=== PATIENT | male | born 1950 | race Caucasian/White ===

== ENCOUNTER 2021-09-11 01:22 | Day surgery (SDC) | payer MEDICARE, OTHER, SELFPAY ==
[2021-09-02 08:15] VITALS: BMI 30.9
--- NOTE | 2021-09-02 08:43 | PC.NURSE ---
Report to the Outpatient Waiting Room, entrance under the green pavilion located off [facility], at time _1000_ on date _09/11/21_. OR Time: _1200_. - You and your visitor will be asked a series of questions to screen for COVID 19 for your protection. - Only one visitor is allowed at this time. - The patient visitor is requested to leave or wait in car when not with patient. - A mask is required within the hospital. Patients may have clear liquids (water, carbonated beverages, clear teas, apple juice) until 3 hours prior to surgery (0900 AM) with a maximum of 20 ounces. - No food from midnight until time of surgery Take the following medications with a SIP of water the morning of surgery: _CARVEDILOL_ Medications to discontinue _PT STATES LAST DOSE OF PLAVIX 08/27/21, LAST DOSE OF ASPIRIN AND FISH OIL 08/31/21_ Please no make-up, nail yi, hairspray, perfume, deodorant, or body powder the day of surgery. No jewelry (including any body piercings) or valuables the day of surgery, leave them at home. Please take a shower or bath the night before, or the morning of, surgery with an antibacterial soap. Wear comfortable, loose fitting clothing. - Jewelry must be removed prior to entering the operating room. Rings and piercings that are not removed may be cut off. - The hospital will not accept responsibility for valuables. - Please leave all valuables, including medications, at home the day of surgery. If you are going home after surgery, a licensed delivery driver/supervisor must drive you home. - NO public transportation without another adult. - We recommend that an adult stay with you for 24 hours following discharge. - We also recommend that you do not drive, make important decision, drink alcoholic beverages, or take any drugs that were not prescribed by your health care provider for at least 24 hours after your discharge time. Follow any additional instructions given to you from your surgeon. If you or anyone in your household have experienced Covid symptoms in the past week, please notify your surgeon or the nurse liaison at the phone number below for possible testing. Telephone instructions given to ____PT and asked if any additional questions and then verbalized understanding. Patient advised to call surgeon office or pre surgery nurse liaison [phone] if any additional questions.
[2021-09-11] VITALS (17 sets, daily range): BP systolic 120–168; BP diastolic 56–87; PULSE 60–70; RESP 12–20; TEMP 35.9–36.5; O2SAT 90–100
--- NOTE | ~2021-09-11 | XR_ITS ---
EXAMINATION: XR fluoroscopy no charge DATE: 09/11/2021 14:31 INDICATION: L5-S1 posterior lumbar interbody TECHNIQUE: 3 lateral fluoroscopic images of the lumbosacral junction were obtained during procedure p erformed by Dr. Robertson. Radiologist was not present for the imaging or procedure. The amount of flu oroscopy time used during this procedure was 0.1 minutes. COMPARISON: None. FINDINGS: Soft tissue retractors project over a lucent likely surgical wound posterior to L5 vertebral body wit h the L5 spinous process appears absent suggesting laminectomy. Interbody device at the L5-S1 disc sp anna. L5-S1 posterior spinal fusion with vertical rods and pedicle screw fixation. Additional screw pr ojects more anteriorly in the pelvis likely an acetabular screw is fissure with a nonvisualized hip a rthroplasty. IMPRESSION: 1. Fluoroscopy utilized during procedure at the lumbosacral junction. See procedure note for further detail. Reviewed, dictated and finalized at location A. IMPRESSION: 1. Fluoroscopy utilized during procedure at the lumbosacral junction. See proce dure note for further detail.
[2021-09-11] MEDS: LACTATED RINGERS 1,000 ML 30 ML IV CONT ×2 (10:55→14:39)
[2021-09-11 11:16] LABS: Basophils Percent Auto 0.6 % (0.2-1.2); Eosinophils Absolute Auto 0.1 K/mm3 (0-0.3); Eosinophils Percent Auto 2.1 % (0-4.4); Hematocrit 43.3 % (42.0-52.0); Hemoglobin 14.5 g/dL (14.0-18.0); Immature Granulocyte Absolute 0.01 K/mm3 (0.00-0.031); Immature Granulocyte Percent A 0.2 % (0-0.5); Lymphocytes Absolute Auto 1.25 K/mm3 (0.9-3.2); Lymphocytes Percent Auto 19.9 % (18.3-44.2); Mean Corpuscular HGB Conc 33.5 g/dl (32-36); Mean Corpuscular Hemoglobin 31.6 pg (26-34); Mean Corpuscular Volume 94.3 fl (80-100); Mean Platelet Volume 9.7 fl (7.4-10.4); Monocytes Absolute Auto 0.7 K/mm3 (0.1-0.6); Monocytes Percent Auto 10.7 % (2.6-8.5); Neutrophils Absolute Auto 4.2 K/mm3 (1.3-6.7); Neutrophils Percent Auto 66.5 % (45.5-73.1); Platelet Count Result 209 k/mm3 (150-375); Red Blood Count 4.59 M/mm3 (4.6-6.20); Red Cell Distribution Width 13.3 % (11.5-14.5); White Blood Count 6.3 K/mm3 (4.5-10.0)
--- NOTE | 2021-09-11 11:48 | WPDANESEPPF ---
Anes - Initial Pre Proc Eval Procedure: Operation Date: 09/11/21 12:00 Proposed Procedures p L5-S1 Posterior Lumbar Interbody Fusion - Americo Robertson MD Date/Time: 09/11/21 11:48 Surgeon: Americo Robertson MD Pre Op Diagnosis: PARS defect lumbar Patient Data Age: 70 Gender: M Height: 1.78 m Weight: 97.72 kg Allergies Allergy/AdvReac Type Severity Reaction Status Date / Time No Known Allergies Allergy Verified 09/11/21 10:13 Home Medications Medication Instructions Recorded Confirmed Type Fish Oil 1 cap DAILY 09/02/21 09/11/21 History apixaban 5 mg tablet (Eliquis) 1 tablet BID 09/02/21 09/11/21 History ascorbic acid (vitamin C) 1,000 mg 1 g PO DAILY 09/02/21 09/11/21 History tablet (Vitamin C) aspirin 81 mg tablet,delayed 81 mg PO QAM 09/02/21 09/11/21 History release atorvastatin 20 mg tablet 1 tablet QAM 09/02/21 09/11/21 History carvedilol 6.25 mg tablet 1 tablet BID 09/02/21 09/11/21 History cholecalciferol (vitamin D3) 50 50 mcg PO QAM 09/02/21 09/11/21 History mcg (2,000 unit) capsule coenzyme Q10 100 mg capsule 200 mg PO QAM 09/02/21 09/11/21 History (CoQ-10) hydrochlorothiazide 25 mg tablet 1 tablet QAM 09/02/21 09/11/21 History lisinopril 40 mg tablet 1 tablet QAM 09/02/21 09/11/21 History tamsulosin 0.4 mg capsule 1 cap PO DAILY 09/02/21 09/11/21 History Laboratory Tests 09/11/21 11:04 WBC 6.3 K/mm3 K/mm3 (4.5-10.0) RBC 4.59 M/mm3 L M/mm3 (4.6-6.20) Hgb 14.5 g/dL g/dL (14.0-18.0) Hct 43.3 % % (42.0-52.0) MCV 94.3 fl fl (80-100) MCH 31.6 pg pg (26-34) MCHC 33.5 g/dl g/dl (32-36) RDW 13.3 % % (11.5-14.5) Plt Count 209 k/mm3 k/mm3 (150-375) MPV 9.7 fl fl (7.4-10.4) Immature Gran % (Auto) 0.2 % % (0-0.5) Neut % (Auto) 66.5 % % (45.5-73.1) Lymph % (Auto) 19.9 % % (18.3-44.2) Milam % (Auto) 10.7 % H % (2.6-8.5) Eos % (Auto) 2.1 % % (0-4.4) Baso % (Auto) 0.6 % % (0.2-1.2) Lymph # (Auto) 1.25 K/mm3 K/mm3 (0.9-3.2) Milam # (Auto) 0.7 K/mm3 H K/mm3 (0.1-0.6) Eos # (Auto) 0.1 K/mm3 K/mm3 (0-0.3) Baso # (Auto) 0.0 K/mm3 K/mm3 (0.0-0.1) Abs Immat Gran (auto) 0.01 K/mm3 K/mm3 (0.00-0.031) Absolute Neuts (auto) 4.2 K/mm3 K/mm3 (1.3-6.7) Absolute Nucleated RBC 0.0 K/mm3 K/mm3 (0.0-0.012) Nucleated RBC % 0.0 % % (0.0-0.2) Patient hx anesthesia problems: none Family hx anesthesia problems: none Results Review: All pre-operative results and documents have been reviewed as part of the pre-operative evaluation. [facility]LY [facility] Past Medical History Medical History Ascending aorta dilation CAD (coronary artery disease) Carotid stenosis Chronic pain syndrome Hyperlipidemia Hypertension Pacemaker Surgical History Surgical History Hx of CABG Stented coronary artery Social History Social History Smoking status: Former smoker Tobacco type: cigarettes Second hand tobacco smoke exposure: No Additional smoking assessment comments: STATES SMOKING <PK/DAY/OFF & ON FOR 20YRS/QUIT EARLY Alcohol intake: current Drinks per week: 5 Substance use: never Substance use type: does not use Living arrangements: with family Spiritual care concerns: No Anes - Eval Final PreProcedure Day of Procedure 09/11/21 11:48 Patient weight: obese Heart: regular rate and rhythm Lungs: decreased breath sounds Airway: Mallampati scale class II Neurological: alert and oriented Last oral intake: >/= 8 hours ASA classification: IV Emergent: no Anesthetic plan: proceed Anesthesia type and monitoring: general Results Review: All pre-operative results and documents have been reviewed as part of the pre-operative evaluation. Informed Consent: The patient's anest
--- NOTE | 2021-09-11 12:04 | PM.IMHP ---
H&P: HPI History of Present Illness Date/Time: 09/11/21 12:04 Chief Complaint: Back and leg pain Narrative: Johnie is a 70-year-old gentleman with a progressive history of problems related to his back and lower extremities related to pars defects at L5 and spondylolisthesis at L5-S1 causing neurologic compression. He continues to have that discomfort. It is not changed appreciably since we last saw him. He is not having new bowel or bladder difficulty. He is not having specific muscle group weakness of either lower extremity. He is not having any dermatomal numbness. He presents today for L5-S1 posterior lumbar interbody fusion. Review of Systems Review of Systems: Negative on 12 systems except as noted above [facility] Past Medical History Medical History Ascending aorta dilation CAD (coronary artery disease) Carotid stenosis Chronic pain syndrome Hyperlipidemia Hypertension Pacemaker Surgical History Surgical History Hx of CABG Stented coronary artery Social History Social History Smoking status: Former smoker Tobacco type: cigarettes Second hand tobacco smoke exposure: No Additional smoking assessment comments: STATES SMOKING <PK/DAY/OFF & ON FOR 20YRS/QUIT EARLY Alcohol intake: current Drinks per week: 5 Substance use: never Substance use type: does not use Living arrangements: with family Spiritual care concerns: No Meds Home Medications and Allergies Home Medications Medication Instructions Recorded Confirmed Type Fish Oil 1 cap DAILY 09/02/21 09/11/21 History apixaban 5 mg tablet (Eliquis) 1 tablet BID 09/02/21 09/11/21 History ascorbic acid (vitamin C) 1,000 mg 1 g PO DAILY 09/02/21 09/11/21 History tablet (Vitamin C) aspirin 81 mg tablet,delayed 81 mg PO QAM 09/02/21 09/11/21 History release atorvastatin 20 mg tablet 1 tablet QAM 09/02/21 09/11/21 History carvedilol 6.25 mg tablet 1 tablet BID 09/02/21 09/11/21 History cholecalciferol (vitamin D3) 50 50 mcg PO QAM 09/02/21 09/11/21 History mcg (2,000 unit) capsule coenzyme Q10 100 mg capsule 200 mg PO QAM 09/02/21 09/11/21 History (CoQ-10) hydrochlorothiazide 25 mg tablet 1 tablet QAM 09/02/21 09/11/21 History lisinopril 40 mg tablet 1 tablet QAM 09/02/21 09/11/21 History tamsulosin 0.4 mg capsule 1 cap PO DAILY 09/02/21 09/11/21 History Allergies Allergy/AdvReac Type Severity Reaction Status Date / Time No Known Allergies Allergy Verified 09/11/21 10:13 Vital Signs Vital Signs - 24 hr 09/11/21 10:16 Temperature 97.7 F Pulse Rate 61 Respiratory Rate 20 Blood Pressure 130/66 Pulse Oximetry 98 Oxygen Delivery Room Air Exam Narrative: The patient is an elderly male supine in a hospital bed in no acute distress. He is awake, alert, oriented x3 with good fund of knowledge, recall events and fluent speech. His face is symmetrical. His eyes are conjugate. There is no upper extremity drift, dysmetria or dyspraxia Strength is normal in the bilateral lower extremities to direct confrontation. Sensation is intact to light touch throughout the lower extremities in the lying position. Clear to auscultation Regular rate and rhythm H&P: Results Labs Labs: Short CBC 09/11/21 Range/Units 11:04 WBC 6.3 (4.5-10.0) K/mm3 Hgb 14.5 (14.0-18.0) g/dL Hct 43.3 (42.0-52.0) % Plt Count 209 (150-375) k/mm3 Assessment and Plan Assessment and plan (1) Spondylolisthesis at L5-S1 level: Code(s): M43.17 - Spondylolisthesis, lumbosacral region Status: Acute (2) Pars defect with spondylolisthesis: Code(s): M43.00 - Spondylolysis, site unspecified; M43.10 - Spondylolisthesis, site unspecified Status: Acute Plan Johnie is a 62-year-old gentleman with spondylolisthes
--- NOTE | 2021-09-11 12:08 | WPDHPUPDATE1 ---
History and Physical Update Update Date/Time: 09/11/21 12:08 History and Physical has been reviewed, including an updated exam of the patient. There are NO changes in the patient's condition. Risks, benefits, and alternatives have been discussed and questions answered. Patient agrees to proceed with procedure.
[2021-09-11] MEDS: ceFAZolin 2 GM/D5W 50 ML 2 GM/50 ML BAG IVPB (12:11)
[2021-09-11] MEDS: LIDO 1%/EPINEPHRINE/PF 1:200,000 30 ML VIAL XX (12:58)
--- NOTE | 2021-09-11 14:36 | W.PM.PROC2 ---
Procedure Note - Detailed Date of Procedure 09/11/21 Pre-op Diagnosis PARS defect lumbar Post-op Diagnosis Same Procedure Performed L5-S1 posterior lumbar interbody fusion Surgeon Americo Robertson MD Nitrocellulose Maker Stalin Jett is a 70-year-old gentleman with back and leg pain related to neurologic compression related to pars defects at L5 and anterolisthesis there who presents for posterior lumbar interbody fusion at L5-S1. Findings Pars defects, spondylolisthesis Description of Procedure Mr. Mccollum was taken to the operating room in the supine position, was sedated, intubated and placed under general anesthesia in routine fashion. He was then turned into the prone position on the Edwin table. The area of operation on his back was examined, marked for incision, prepped and draped in routine sterile fashion. Incision was marked over the L5 and S1 spinous processes in the midline. This area was injected with 0.5% lidocaine with [id number] epinephrine. Intravenous antibiotics given prior to incision. Incision was made with a 10 blade scalpel down to the lumbodorsal fascia. A subperiosteal dissection muscle and soft tissue with spinous process and lamina at L5 and S1 was performed with a subperiosteal elevator and Bovie cautery. A verifying x-rays obtained to verify the level of operation. The L5 spinous process was removed with a Marnie rongeur. Kerrison punches to create a Leksell rongeur were used to remove the lamina in the midline into the soft contents of the canal our encounter. Dissection was carried out across the pars defect and the facet capsule was interrupted and stripped free of soft tissue. The inferior articular process and facet of L5 could then be removed bilaterally. Knees +spinous process were stripped free of soft tissue and morselized for later use as interbody autograft. Kerrison punches and curved curettes were used to define a plane with the dura and removed bone and ligament flush with the pedicle and through the foramina widely decompressing the exiting nerve roots. With the thecal sac retracted and protected, the disc space was entered bilaterally using an 11 blade scalpel. Scrapers of various sizes, curettes of various configurations, a pituitary rongeur and a rasp were used to remove as much cartilaginous endplate and disc material down to bleeding cortical flat surfaces on the opposing bones. An 8 mm interbody device 26 mm in length was placed from the left to the right after being filled with local autograft bone. The disc space had likewise been filled with local autograft bone. Pedicle screw instrumentation was then performed by observing and palpating the pedicle while a hole was made superior to the process above the pedicle using a Midas Gunner drill. The pedicle was then cannulated with a pedicle probe, checked for continuity with the ball probe, tapped with a 5.5 mm tap and a 6.5 x 50 mm screw was placed into each pedicle on each side. Rods were placed into the screw heads on either side and secured in position using the caps for that purpose. Verifying x-rays obtained to verify good position of the instrumentation which was confirmed. The wound was copiously irrigated with bacitracin irrigation all bleeding stopped with bipolar and Bovie cautery and FloSeal. A medium Hemovac drain was placed in a subfascial position and carried out to the inferior and right of the incision. The wound was then closed in layered fashion with 2-0 Vicryl interrupted sutures in the lumbodorsal fascia and Frandy's layer. 3-0 Vicryl buried interrupted sutures were placed in the dermis and the skin was closed with a running 4-0 Monocryl subcuticular stitch and dressed with Dermabond and a Telfa and Tegaderm dressing. The patient was then allowed to wake up in the operating room and was taken to the recovery room in stable condition. There were no immediate complications of this operation. All counts were reported jordyn
[2021-09-11] MEDS: fentaNYL CITRATE INJ (*CRX) 100 MCG/2 ML VIAL 25 MCG IV PUSH ×8 (14:46→15:28)
[2021-09-11] MEDS: HYDROmorphone HCL INJ (*CRX) 1 MG/ML SYR 0.5 MG IV PUSH ×4 (15:38→16:05)
--- NOTE | 2021-09-11 16:55 | ADMGEN ---
This patient, Johnie Mccollum, was admitted to Medical Room 253-01. Patient/family oriented to hospital policies and general routines including ID bracelet, bed and alarms, visiting hours, pain management, procedures, bathroom and other care routines, personal items, smoking policy, room service/diet, and visiting hours. Information on how to activate the Rapid Response Team has been discussed. Patient/Family are encouraged to report perceived risks to care and to ask questions if they do not understand what they are told or what they should do.
[2021-09-11] MEDS: HYDROcodone/acetaminophen (*CRX) 10-325 MG TABLET 1 TAB PO ×2 (17:29→22:33)
[2021-09-11] MEDS: DOCUSATE SODIUM 100 MG CAPSULE PO (20:00)
[2021-09-11] MEDS: carvediloL 6.25 MG TABLET BY MOUTH (20:00)
[2021-09-12 01:27] VITALS: BP 128/53; PULSE 60; RESP 16; TEMP 36.4; O2SAT 97
[2021-09-12] MEDS: HYDROcodone/acetaminophen (*CRX) 10-325 MG TABLET 1 TAB PO ×3 (02:35→11:29)
[2021-09-12 04:00] VITALS: BP 139/56; PULSE 84; RESP 16; TEMP 36.8; O2SAT 99
[2021-09-12] MEDS: ATORVASTATIN 20 MG TABLET BY MOUTH (09:05)
[2021-09-12] MEDS: ASCORBIC ACID 500 MG TABLET 1000 MG PO (09:05)
[2021-09-12] MEDS: hydroCHLOROthiazide 25 MG TABLET BY MOUTH (09:05)
[2021-09-12] MEDS: CHOLECALCIFEROL 1,000 UNITS TABLET 2000 UNITS PO (09:05)
[2021-09-12 09:06] VITALS: PULSE 60
[2021-09-12] MEDS: lisinopriL 20 MG TABLET 40 MG BY MOUTH (09:06)
[2021-09-12] MEDS: carvediloL 6.25 MG TABLET BY MOUTH (09:06)
[2021-09-12 09:12] VITALS: BP 135/66
[2021-09-12] MEDS: DOCUSATE SODIUM 100 MG CAPSULE PO (09:14)
[2021-09-12 09:15] VITALS: O2SAT 96
[2021-09-12 12:00] VITALS: BP 115/59; PULSE 61; RESP 18; TEMP 36.4; O2SAT 100
[2021-09-12] MEDS: ceFAZolin 2 GM/D5W 50 ML 2 GM/50 ML BAG IVPB ×2 (12:20)
--- NOTE | 2021-09-12 12:37 | WPDPN ---
Progress Note: A&P Assessment and Plan (1) Spondylolisthesis at L5-S1 level: Code(s): M43.17 - Spondylolisthesis, lumbosacral region Status: Acute Plan NEurologically stable post PLIF Stable for d/c to home Drain removed When abx complete, ok to d/c Time Spent With Patient Time with patient: less than 15 minutes Subjective Date/time seen: 09/12/21 12:37 Interval history: PAtient notes controlled back pain No leg pain Ambulating well in halls Exam Narrative: Awake Alert Ox3 Speech CF PELA EOMI Face= TML MAEW with 5/5 strength Dressing CDI Objective Data Vital Signs Vital Signs: Vital Signs - 24 hr 09/11/21 14:39 09/11/21 14:50 09/11/21 15:05 Temperature 96.9 F L Pulse Rate 60 68 62 Respiratory Rate 16 16 16 Blood Pressure 120/75 139/87 159/83 H Pulse Oximetry 99 99 100 Oxygen Delivery Simple Face Mask Simple Face Mask Simple Face Mask Oxygen Flow Rate 6 6 6 09/11/21 15:13 09/11/21 15:20 09/11/21 15:35 Temperature Pulse Rate 61 66 Respiratory Rate 14 14 Blood Pressure 153/70 H 159/76 H Pulse Oximetry 90 100 Oxygen Delivery Room Air Nasal Cannula Nasal Cannula Oxygen Flow Rate 2 2 09/11/21 15:50 09/11/21 16:05 09/11/21 16:20 Temperature Pulse Rate 63 61 63 Respiratory Rate 14 14 12 Blood Pressure 158/82 H 151/73 H 156/71 H Pulse Oximetry 100 99 99 Oxygen Delivery Nasal Cannula Nasal Cannula Nasal Cannula Oxygen Flow Rate 2 2 2 09/11/21 16:35 09/11/21 16:45 09/11/21 17:00 Temperature 97.5 F L 96.6 F L Pulse Rate 60 60 60 Respiratory Rate 12 12 16 Blood Pressure 143/73 H 162/77 H 154/66 H Pulse Oximetry 99 100 100 Oxygen Delivery Nasal Cannula Nasal Cannula Oxygen Flow Rate 2 2 09/11/21 17:15 09/11/21 17:45 09/11/21 18:45 Temperature 96.6 F L 96.8 F L 96.7 F L Pulse Rate 62 61 67 Respiratory Rate 18 16 18 Blood Pressure 165/66 H 168/75 H 121/56 L Pulse Oximetry 98 100 95 Oxygen Delivery Oxygen Flow Rate 09/11/21 20:00 09/11/21 20:00 09/11/21 21:46 Temperature 97.6 F Pulse Rate 60 70 Respiratory Rate 16 Blood Pressure 135/75 Pulse Oximetry 98 Oxygen Delivery Room Air Oxygen Flow Rate 09/12/21 01:27 09/12/21 04:00 09/12/21 08:00 Temperature 97.6 F 98.2 F Pulse Rate 60 84 Respiratory Rate 16 16 Blood Pressure 128/53 L 139/56 L Pulse Oximetry 97 99 Oxygen Delivery Room Air Oxygen Flow Rate 09/12/21 09:06 09/12/21 09:12 09/12/21 09:15 Temperature Pulse Rate 60 Respiratory Rate Blood Pressure 135/66 Pulse Oximetry 96 Oxygen Delivery Room Air Oxygen Flow Rate Intake/Output Intake/Output: Intake & Output 09/09/21 09/10/21 09/11/21 09/12/21 23:59 23:59 23:59 23:59 Intake Total 2800 840 Output Total 285 225 Balance 8225 615 Meds/Results Medications: Active Medications Generic Name Dose Route Start Last Admin Trade Name Freq PRN Reason Stop Dose Admin Hydrocodone Bitart/Acetaminophen 1 tab 09/11/21 14:43 Hydrocodone/Acetaminophen (*Crx) 5-325 Mg Tablet PO Q4H PRN Mild Pain (1-3) Hydrocodone Bitart/Acetaminophen 1 tab 09/11/21 14:43 09/12/21 11:29 Hydrocodone/Acetaminophen (*Crx) 10-325 Mg Tablet PO 1 tab Q4H PRN Administration Moderate Pain (4-6) Al Hydrox/Mg Hydrox/Simethicone 20 ml 09/11/21 14:43 Mag Hydrox/Al Hydrox/Simeth 30 Ml Udc PO Q4H PRN Indigestion/Heartburn Ascorbic Acid 1,000 mg 09/12/21 09:00 09/12/21 09:05 Ascorbic Acid 500 Mg Tablet PO 1,000 mg DAILY JULIET Administration Atorvastatin Calcium 20 mg 09/12/21 09:00 09/12/21 09:05 Atorvastatin 20 Mg Tablet BY MOUTH 20 mg QAM JULIET Administration Bisacodyl 10 mg 09/11/21 14:43 Bisacodyl 10 Mg Suppository RECTAL DAILY PRN Constipation Carvedilol 6.25 mg 09/11/21 17:00 09/12/21 09:06 Carvedilol 6.25 Mg Tablet BY MOUTH 6.25 mg BID JULIET Administration Cyclobenzaprine HCl 10 mg 09/11/21 14:43
== END 2021-09-12 13:23 | disposition home or self-care (01) ==
LOC: ANHSURGERY 10:05 → ANH2MED 16:17
PROVIDERS: PCP Hospitalist; Visit Provider Neurological Surgery
PROC: (CPT 22612; principal; 2021-09-11 12:00)
DX: M43.17 Spondylolisthesis, lumbosacral region (principal); I10 Essential (primary) hypertension; E78.5 Hyperlipidemia, unspecified; I25.10 Atherosclerotic heart disease of native coronary artery without angina pectoris; I77.810 Thoracic aortic ectasia; I65.29 Occlusion and stenosis of unspecified carotid artery; G89.4 Chronic pain syndrome; Z95.0 Presence of cardiac pacemaker; Z95.5 Presence of coronary angioplasty implant and graft; Z95.1 Presence of aortocoronary bypass graft; Z79.01 Long term (current) use of anticoagulants; Z87.891 Personal history of nicotine dependence; E66.9 Obesity, unspecified; Z68.31 Body mass index [BMI] 31.0-31.9, adult; Z79.82 Long term (current) use of aspirin
CPT/HCPCS: 22633; 22853; 20936; 36415; 85025; 86850; 86900; 86901; 97161; 97165; 99199; A9270; J0330; J0690; J1100; J1170; J2405; J2704; J3010; J7120

== ENCOUNTER 2021-10-30 11:56 | Outpatient (CLI) | payer MEDICARE, OTHER, SELFPAY ==
--- NOTE | ~2021-10-30 | XR_ITS ---
XR lumbar spine 2-3V 10/30/2021 12:25 Indication: Low back pain Procedure: 3 views lumbar spine Comparison: No prior studies for comparison. Findings: There is disc narrowing at all lumbar levels. There is posterior fusion at L5-S1. There is a prosthetic disc device at L5-S1. No fracture or traumatic malalignment. Normal lumbar lordosis. The re are prominent marginal osteophytes at multiple levels. There are partially visualized bilateral hi p arthroplasties. Impression: 1: Severe lumbar spondylosis. Reviewed, dictated and finalized at location B. Impression: 1: Severe lumbar spondylosis.
== END 2021-10-30 11:57 | disposition home or self-care (01) ==
PROVIDERS: PCP Hospitalist; Visit Provider Neurological Surgery
DX: M47.816 Spondylosis without myelopathy or radiculopathy, lumbar region (principal); Z98.1 Arthrodesis status
CPT/HCPCS: 72100

== ENCOUNTER 2022-02-12 07:06 | Outpatient (CLI) | payer MEDICARE, OTHER, SELFPAY ==
--- NOTE | ~2022-02-12 | CT_ITS ---
EXAMINATION: CT lumbar spine wo con DATE: 02/12/2022 07:21 INDICATION: Back pain. TECHNIQUE: Computed tomography (CT) of the lumbar spine was performed without intravenous contrast. A utomated exposure control and iterative reconstruction technique were employed. The dose-length produ ct was 1158.47 mGy-cm. COMPARISON: Lumbar spine radiographs 10/30/2021 FINDINGS: There is 3 mm anterolisthesis of L5 on S1. There are changes of anterior and posterior fusi on procedures at L5-S1 with interbody device and pedicle screws. There are Schmorl's nodes at multipl e levels. There is moderately decreased disc height at L1-L2 and mildly decreased disc height at L3-L 4. Osseous central spinal canal is developmentally small in lumbar spine. There are bridging endplate osteophytes at T11-T12. There is a calcified pleural plaque on the left. The following disc levels a re specifically discussed: L1-L2: The disc is bulging. There is mild bilateral facet joint osteoarthritis. There is mild bilater al neural foraminal stenosis. There is mild central canal stenosis. L2-L3: The disc is bulging. There is mild bilateral facet joint osteoarthritis. There is mild bilater al neural foraminal stenosis. There is mild central canal stenosis. L3-L4: The disc is bulging. There is mild bilateral facet joint osteoarthritis. There is mild bilater al neural foraminal stenosis. There is mild central canal stenosis. L4-L5: The disc is bulging. There is severe bilateral facet joint osteoarthritis. There is moderate b ilateral neural foraminal stenosis. There is mild central canal stenosis with posterior decompression . L5-S1: There is no facet joint hypertrophy. There is mild bilateral neural foraminal stenosis. There is mild central canal stenosis with posterior decompression. IMPRESSION: 1. Moderate lumbar spondylosis. 2. Anterior and posterior fusion procedures at L5-S1. Reviewed, dictated and finalized at location A. SION OPERATOR
== END 2022-02-12 07:07 | disposition home or self-care (01) ==
PROVIDERS: PCP Hospitalist; Visit Provider Neurological Surgery
DX: M43.06 Spondylolysis, lumbar region (principal); Z98.1 Arthrodesis status
CPT/HCPCS: 72131

== ENCOUNTER 2022-04-27 09:26 | Outpatient (CLI) | payer MEDICARE, OTHER, SELFPAY ==
--- NOTE | ~2022-04-27 | XR_ITS ---
Lumbosacral Spine: AP and lateral views Clinical History: Pain COMPARISON: 10/30/2021 Findings: The normal lordotic curve is maintained. Posterior fusion from L5 to S1 is unchanged from p rior exam. Facet joint degenerative changes are similar to prior exam. Mild degenerative disc changes are stable from prior exam. The intervertebral disc spaces are preserved. There is probable ankylosi s of the bilateral SI joints. Impression: No acute abnormality. Stable degenerative spondylosis as compared to prior exam. Posterior fusion from L5 to S1, unchanged. 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 Reviewed, dictated and finalized at location M. ECTIONAL MEDICINE PHYSICIAN Impression: No acute abnormality. Stable degenerative spondylosis as compared to prior exam. Posterior fusion from L5 to S1, unchanged. 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
== END 2022-04-27 09:27 | disposition home or self-care (01) ==
PROVIDERS: PCP Hospitalist; Visit Provider Neurological Surgery
DX: M47.816 Spondylosis without myelopathy or radiculopathy, lumbar region (principal); M54.50 Low back pain, unspecified; M43.10 Spondylolisthesis, site unspecified; Z98.1 Arthrodesis status
CPT/HCPCS: 72100

== ENCOUNTER 2022-05-26 01:52 | Outpatient (CLI) | payer MEDICARE, OTHER, SELFPAY ==
--- NOTE | 2022-05-21 15:45 | PC.NURSE ---
Pre Radiology instructions Report to the outpatient torrey [email or web address] on date _05/26/22 @ 0730____ Procedure Time: __30__ YOU MAY BE MONITORED AT HOSPITAL FOR UP TO 4 HOURS AFTER YOUR PROCEDURE. A visitors will be allowed to accompany the patient into the hospital. ?The visitor will be instructed to remain with patient at all times or leave the building due to restrictions.? We will allow the visitor to come back to the postoperative area when patient is ready.? NO children visitors allowed at this time. You and your visitor will be asked to self-screen and do not enter if you have any COVID symptoms. A mask is OPTIONAL within the hospital. Patients are to have no food or drink 6 hours prior to procedure time (0330 AM) Driving will be restricted after the procedure, you must have a person to drive you home. Labs will be drawn in preop area and once reviewed, you will be taken to radiology area for procedure. When the procedure is completed, you will be taken to outpatient where you will be monitored for several hours. You may have one visitor in this area. Other than holding anti-coagulants, patient may take other medication(s) as scheduled. Prior to your appointment date patients are instructed to hold anti-coagulants after discussing with ordering provider to stop. If unable to discontinue anti-coagulants please notify radiologist. ? No aspirin or warfarin (Coumadin) for 7 days prior to the procedure. ? No clopidogrel (Plavix), ticagrelor (Brilinta), prasugrel (Effient) or dabigatran (Pradaxa) for 5 days prior to the procedure. ? No rivaroxaban (Xarelto), apixaban (Eliquis), dipyridamole (Aggrenox or Persantine) or cilostazol (Pletal) for 2 days prior to the procedure. Medications to discontinue per physician: __ASPIRIN, Date to take last dose: 05/18/22, XARELTO, Date to take last dose 05/23/22 Please leave all valuables, including medications, at home the day of procedure. The hospital will not accept responsibility for valuables. Wear comfortable, loose fitting clothing.? Follow any additional instructions given to you from ordering provider. Telephone instructions given to PATIENT and asked if any additional questions and then verbalized understanding. Patient advised to call scheduling provider office or registration scheduling [phone] if any additional questions.
[2022-05-26] VITALS (8 sets, daily range): BP systolic 142–157; BP diastolic 65–83; PULSE 59–66; RESP 16–18; TEMP 36.4; O2SAT 96–99
--- NOTE | ~2022-05-26 | XR_ITS ---
EXAMINATION: 1. CT lumbar spine w con 2. XR myelogram spine lumbosacral DATE: 05/26/2022 10:08 INDICATION: Back pain. TECHNIQUE: The procedure including the risks, benefits, and alternatives was discussed with the patie nt. Risks discussed included headache, bleeding, and infection. The patient understood the risks and agreed to proceed. A timeout was performed to verify the patient's name, date of , and proced ure to be performed. The skin overlying the L5 level was prepped and draped in usual sterile fashion . Subcutaneous 1% lidocaine was used for local anesthesia. A 22 gauge spinal needle was advanced un brenda fluoroscopic guidance. 17 mL Omnipaque 180 was injected in the thecal sac. The needle was removed and the entry site was cleaned and dressed. There were no immediate complications. Fluoroscopy expo sure time was 0.3 minutes. The total number of images was 10. Computed tomography (CT) of the lumbar spine was performed without intravenous contrast. Automated exposure control and iterative reconstruc tion technique were employed. The dose-length product was 1280.12 mGy-cm. COMPARISON: lumbar spine CT 02/12/22 FINDINGS: LUMBAR MYELOGRAM: Real-time fluoroscopy demonstrates the needle at the L5 level. There is indentatio n of the thecal sac at multiple levels are well be further described on the postmyelogram CT. POST MYELOGRAM LUMBAR SPINE CT: There are chronic bilateral L5 pars defects. There is 3 mm anterolist hesis of L5 on S1. There are changes of posterior fusion procedure and anterior fusion procedure at L 5-S1 with pedicle screws and interbody device. There are Schmorl's nodes at multiple levels. There ar e bridging endplate osteophytes at T11-T12. There is severely decreased disc height at L1-L2 and mild ly decreased disc height at L2-L3 and L3-L4. The conus medullaris is at L1. The following disc levels are specifically discussed: L1-L2: The disc is bulging. There is mild bilateral facet joint osteoarthritis. There is mild bilater al neural foraminal stenosis. There is mild central canal stenosis. L2-L3: The disc is bulging. There is mild bilateral facet joint osteoarthritis. There is mild bilater al neural foraminal stenosis. There is mild central canal stenosis. L3-L4: The disc is bulging. There is mild bilateral facet joint osteoarthritis. There is mild bilater al neural foraminal stenosis. There is mild central canal stenosis. L4-L5: The disc is bulging. There is moderate bilateral facet joint osteoarthritis. There is moderate bilateral neural foraminal stenosis. There is mild central canal stenosis with posterior decompressi on. L5-S1: There is mild right facet joint hypertrophy. There is mild bilateral neural foraminal stenosis . There is no central canal stenosis. There is posterior decompression. IMPRESSION: 1. Severe lumbar spondylosis, stable from 02/12/2022. 2. Anterior and posterior fusion procedures at L5-S1. Reviewed, dictated and finalized at location A. IMPRESSION: 1. Severe lumbar spondylosis, stable from 02/12/2022. 2. Anterior and posterior fusion procedures at L5-S1.
[2022-05-26 08:18] LABS: Basophils Percent Auto 0.6 % (0.2-1.2); Eosinophils Absolute Auto 0.2 K/mm3 (0-0.3); Eosinophils Percent Auto 2.8 % (0-4.4); Hemoglobin 14.1 g/dL (14.0-18.0); Immature Granulocyte Absolute 0.02 K/mm3 (0.00-0.031); Immature Granulocyte Percent A 0.3 % (0-0.5); Lymphocytes Absolute Auto 1.28 K/mm3 (0.9-3.2); Lymphocytes Percent Auto 19.8 % (18.3-44.2); Mean Corpuscular HGB Conc 32.8 g/dl (32-36); Mean Corpuscular Hemoglobin 31.7 pg (26-34); Mean Corpuscular Volume 96.6 fl (80-100); Mean Platelet Volume 9.6 fl (7.4-10.4); Monocytes Absolute Auto 0.7 K/mm3 (0.1-0.6); Monocytes Percent Auto 10.8 % (2.6-8.5); Neutrophils Absolute Auto 4.3 K/mm3 (1.3-6.7); Neutrophils Percent Auto 65.7 % (45.5-73.1); Platelet Count Result 216 k/mm3 (150-375); Red Blood Count 4.45 M/mm3 (4.6-6.20); Red Cell Distribution Width 12.8 % (11.5-14.5); White Blood Count 6.5 K/mm3 (4.5-10.0)
[2022-05-26 08:28] LABS: INR 1.1; Prothrombin Time 13.5 Seconds (11.1-14.7)
== END 2022-05-26 12:15 | disposition home or self-care (01) ==
PROVIDERS: PCP Hospitalist; Referring Provider Neurological Surgery; Visit Provider Radiology Diagnostic Radiology
DX: M54.9 Dorsalgia, unspecified (principal); M43.17 Spondylolisthesis, lumbosacral region; Z98.1 Arthrodesis status; M51.26 Other intervertebral disc displacement, lumbar region
CPT/HCPCS: 36415; 62304; 72132; 85025; 85610; Q9965

== ENCOUNTER 2022-11-24 07:55 | Outpatient (CLI) | payer MEDICARE, OTHER, SELFPAY ==
[2022-11-24 09:35] LABS: Appearance Urine Clear (Clear); Bilirubin Urine Negative (Negative); Blood Urine Negative (Negative); Color Urine Yellow (Yellow); Glucose Urine UA Negative (Negative); Ketones Urine Negative (Negative); Leukocyte Esterase Ur Negative LEU/UL (Negative); Nitrate Urine Negative (Negative); Protein Urine Negative (Negative); Specific Grav Ur 1.023 (1.001-1.035); Urobilinogen Urine 0.2 mg/dL (<2.0)
[2022-11-24 09:37] LABS: Add Urine Microscopic? NO
[2022-11-24 09:38] LABS: Hematocrit 44.7 % (42.0-52.0); Hemoglobin 14.4 g/dL (14.0-18.0); Mean Corpuscular HGB Conc 32.2 g/dl (32-36); Mean Corpuscular Hemoglobin 30.2 pg (26-34); Mean Corpuscular Volume 93.7 fl (80-100); Mean Platelet Volume 10.1 fl (7.4-10.4); Platelet Count Result 199 k/mm3 (150-375); Red Blood Count 4.77 M/mm3 (4.6-6.20); Red Cell Distribution Width 13.7 % (11.5-14.5); White Blood Count 5.7 K/mm3 (4.5-10.0)
[2022-11-24 09:46] LABS: Anion Gap 10 mmol/L (8-16); Blood Urea Nitrogen 20 mg/dL (9-20); Calcium 9.3 mg/dL (8.4-10.2); Carbon Dioxide 26 mmol/L (22-30); Chloride 104 mmol/L (98-107); Estimated Glomerular Filt Rate > 60; Glucose 101 mg/dL (65-110); Potassium 3.9 mmol/L (3.4-5.0); Sodium 140 mmol/L (137-145)
[2022-11-24 09:54] LABS: Prothrombin Time 13.6 Seconds (11.1-14.7)
[2022-11-24 09:55] LABS: Partial Thromboplastin Time 32.3 SECONDS (22.3-36.8)
== END 2022-11-24 07:56 | disposition home or self-care (01) ==
LOC: ANHSURGERY 08:00
PROVIDERS: PCP Hospitalist; Visit Provider Neurological Surgery
DX: M48.061 Spinal stenosis, lumbar region without neurogenic claudication (principal); Z01.818 Encounter for other preprocedural examination
CPT/HCPCS: 36415; 80048; 81003; 85027; 85610; 85730

== ENCOUNTER 2022-11-26 00:54 | Day surgery (SDC) | payer MEDICARE, OTHER, SELFPAY ==
[2022-11-20 13:36] VITALS: BMI 29.5
--- NOTE | 2022-11-20 13:58 | PC.NURSE ---
PRE-OP INSTRUCTIONS, PLEASE READ CAREFULLY Report to the Outpatient Waiting Room, entrance under the green pavilion located off [facility], at time _0600_ on date _11/26/22_. Planned Procedure Time: _0800_. PACK A SMALL OVERNIGHT BAG AND LEAVE IN THE CAR Time changes happen often and if your time is changed the preop area will call you the afternoon before. - You and your visitor will be asked to self-screen and do not enter if you have any COVID symptoms. - A mask is optional within the hospital at this time. -VISITING HOURS 8AM-8PM Patients may have clear liquids (water, carbonated beverages, clear teas, apple juice) until 3 hours prior to surgery (0500 AM) with a maximum of 20 ounces. - No food from midnight until time of surgery Take the following medications with a SIP of water the morning of surgery: _CARVEDILOL_ DO NOT STOP ANY OF YOUR OTHER PRESCRIPTION MEDICATIONS PRIOR TO SURGERY ?EXCEPT THE FOLLOWING Medications to discontinue _(PER PT) ASPIRIN AND FISH OIL STOPPED 11/18/22_ Please no make-up, nail croatian, hairspray, perfume, deodorant, or body powder the day of surgery. No jewelry (including any body piercings) or valuables the day of surgery, leave them at home. Please take a shower or bath the night before, or the morning of, surgery with an antibacterial soap. Wear comfortable, loose fitting clothing. - Jewelry must be removed prior to entering the operating room. Rings and piercings that are not removed may be cut off. - The hospital will not accept responsibility for valuables. - Please leave all valuables, including medications, at home the day of surgery. If you are going home after surgery, a licensed rolloff driver must drive you home. - NO public transportation without another adult if you receive anesthesia. - We recommend that an adult stay with you for 24 hours following discharge. - We also recommend that you do not drive, make important decision, drink alcoholic beverages, or take any drugs that were not prescribed by your health care provider for at least 24 hours after your discharge time. Follow any additional instructions given to you from your surgeon. If you or anyone in your household have experienced Covid symptoms in the past week, please notify your surgeon or the nurse liaison at the phone number below for possible testing. Telephone instructions given to _PATIENT_and asked if any additional questions and then verbalized understanding. Patient advised to call surgeon office or pre surgery nurse liaison [phone] if any additional questions.
[2022-11-26] VITALS (17 sets, daily range): BP systolic 105–180; BP diastolic 9–96; PULSE 60–66; RESP 12–20; TEMP 36.4–36.7; O2SAT 94–100
--- NOTE | ~2022-11-26 | XR_ITS ---
EXAMINATION: XR fluoroscopy no charge DATE: 11/26/2022 10:27 INDICATION: Lumbar hemilaminectomy. TECHNIQUE: A single intraoperative fluoroscopic view of the lumbar spine was obtained. I was not pres ent. Fluoroscopy exposure time was 5 seconds. COMPARISON: CT lumbar spine 05/26/2022 FINDINGS: Partially visualized are changes of posterior fusion procedure at L5-S1 with pedicle screws . There is an instrument overlying the posterior elements at L4. IMPRESSION: 1. Posterior fusion procedure at L5-S1. Reviewed, dictated and finalized at location A.
[2022-11-26] MEDS: LACTATED RINGERS 1,000 ML 30 ML IV CONT ×2 (06:33→11:19)
--- NOTE | 2022-11-26 07:50 | WPDANESEPPF ---
Anes - Initial Pre Proc Eval Procedure: Operation Date: 11/26/22 08:00 Proposed Procedures p Left L4-5 Far Lateral Foraminotomy, Left L3-4 Hemilaminectomy - Americo Robertson MD Date/Time: 11/26/22 07:50 Surgeon: Americo Robertson MD Pre Op Diagnosis: left L4-5 foraminal stenosis, L3-4 stenosis Patient Data Age: 72 Gender: M Height: 1.78 m Weight: 92.5 kg Last Vital Signs Temp 36.4 C L 11/26/22 06:15 Pulse 61 11/26/22 06:15 Resp 18 11/26/22 06:15 BP 144/76 H 11/26/22 06:15 Pulse Ox 98 11/26/22 06:15 O2 Del Method Room Air 11/26/22 06:15 Allergies Allergy/AdvReac Type Severity Reaction Status Date / Time No Known Allergies Allergy Verified 11/26/22 07:49 Home Medications Medication Instructions Recorded Confirmed Type ascorbic acid (vitamin C) 1,000 mg 1 g PO DAILY 09/02/21 11/26/22 History tablet (Vitamin C) aspirin 81 mg tablet,delayed 81 mg PO QAM 09/02/21 11/26/22 History release atorvastatin 20 mg tablet 1 tablet QAM 09/02/21 11/26/22 History carvedilol 6.25 mg tablet 1 tablet BID 09/02/21 11/26/22 History cholecalciferol (vitamin D3) 50 50 mcg PO QAM 09/02/21 11/26/22 History mcg (2,000 unit) capsule coenzyme Q10 100 mg capsule 200 mg PO QAM 09/02/21 11/26/22 History (CoQ-10) lisinopril 40 mg tablet 1 tablet QAM 09/02/21 11/26/22 History tamsulosin 0.4 mg capsule 1 cap PO DAILY 09/02/21 11/26/22 History omega 5-iml-wwl-fish oil 500 mg 1 cap PO DAILY 05/21/22 11/26/22 History (200mg-300mg)-1,000 mg capsule Patient hx anesthesia problems: none Family hx anesthesia problems: none Results Review: All pre-operative results and documents have been reviewed as part of the pre-operative evaluation. [facility] Past Medical History Medical History Ascending aorta dilation CAD (coronary artery disease) Carotid stenosis Chronic pain syndrome Hyperlipidemia Hypertension Pacemaker Surgical History Surgical History Hx of CABG Stented coronary artery Social History Social History Social History: Johnie is very confident filling out medical forms. In the last 12 months he has not received assistance from an organization or program. Smoking status: Former smoker Tobacco type: cigarettes Second hand tobacco smoke exposure: No Additional smoking assessment comments: STATES SMOKING <PK/DAY/OFF & ON FOR 20YRS/QUIT EARLY Alcohol intake: current Drinks per week: 2 Substance use: never Substance use type: does not use Lack of Transportation: No Lack of Food: Never True Current Housing: I Have Housing Concerned About Future Housing: No Difficulty Paying Gas/Electric Bills: No Difficulty Paying for Meds: No Currently Unemployed: No Education: Decline to Answer Difficulty w/ Childcare or Family Care: Decline to Answer Living arrangements: with family Spiritual care concerns: No Anes - Eval Final PreProcedure Day of Procedure 11/26/22 07:50 Patient weight: obese Heart: regular rate and rhythm Lungs: clear to auscultation Airway: Mallampati scale class III Neurological: alert and oriented Last oral intake: >/= 8 hours ASA classification: III Emergent: no Anesthetic plan: proceed Anesthesia type and monitoring: general GIVS and standard monitoring Results Review: All pre-operative results and documents have been reviewed as part of the pre-operative evaluation. Informed Consent: The patient's anesthetic plan and its attendant risks and benefits were discussed with the patient/family/POA. Questions were solicited and answers provided to the satisfaction of the patient/family/POA.
--- NOTE | 2022-11-26 08:22 | PM.IMHP ---
H&P: HPI History of Present Illness Date/Time: 11/26/22 08:22 Chief Complaint: Back and left leg pain Narrative: Johnie is a 72-year-old gentleman who presents today for decompression L3-4 L4-5 lateral recess and foraminal stenosis causing left lower extremity discomfort. He has not changed appreciably since we last saw him. He does not have specific muscle group weakness or dermatomal numbness. He is not having bowel or bladder difficulty. Review of Systems Review of Systems: Patient denies shortness of breath, cough, fever, chills, nausea, vomiting, weight loss, weight gain, chest pain, dysuria. He has back and left leg pain as above. His review of systems is otherwise negative except as noted elsewhere. [facility] Past Medical History Medical History Ascending aorta dilation CAD (coronary artery disease) Carotid stenosis Chronic pain syndrome Hyperlipidemia Hypertension Pacemaker Surgical History Surgical History Hx of CABG Stented coronary artery Social History Social History Social History: Johnie is very confident filling out medical forms. In the last 12 months he has not received assistance from an organization or program. Smoking status: Former smoker Tobacco type: cigarettes Second hand tobacco smoke exposure: No Additional smoking assessment comments: STATES SMOKING <PK/DAY/OFF & ON FOR 20YRS/QUIT EARLY Alcohol intake: current Drinks per week: 2 Substance use: never Substance use type: does not use Lack of Transportation: No Lack of Food: Never True Current Housing: I Have Housing Concerned About Future Housing: No Difficulty Paying Gas/Electric Bills: No Difficulty Paying for Meds: No Currently Unemployed: No Education: Decline to Answer Difficulty w/ Childcare or Family Care: Decline to Answer Living arrangements: with family Spiritual care concerns: No Meds Home Medications and Allergies Home Medications Medication Instructions Recorded Confirmed Type ascorbic acid (vitamin C) 1,000 mg 1 g PO DAILY 09/02/21 11/26/22 History tablet (Vitamin C) aspirin 81 mg tablet,delayed 81 mg PO QAM 09/02/21 11/26/22 History release atorvastatin 20 mg tablet 1 tablet QAM 09/02/21 11/26/22 History carvedilol 6.25 mg tablet 1 tablet BID 09/02/21 11/26/22 History cholecalciferol (vitamin D3) 50 50 mcg PO QAM 09/02/21 11/26/22 History mcg (2,000 unit) capsule coenzyme Q10 100 mg capsule 200 mg PO QAM 09/02/21 11/26/22 History (CoQ-10) lisinopril 40 mg tablet 1 tablet QAM 09/02/21 11/26/22 History tamsulosin 0.4 mg capsule 1 cap PO DAILY 09/02/21 11/26/22 History omega 2-dor-vyv-fish oil 500 mg 1 cap PO DAILY 05/21/22 11/26/22 History (200mg-300mg)-1,000 mg capsule Allergies Allergy/AdvReac Type Severity Reaction Status Date / Time No Known Allergies Allergy Verified 11/26/22 07:49 Vital Signs Vital Signs - 24 hr 11/26/22 06:15 Temperature 97.5 F L Pulse Rate 61 Respiratory Rate 18 Blood Pressure 144/76 H Pulse Oximetry 98 Oxygen Delivery Room Air Exam Narrative: Strength is 5/5 in all muscle groups of the bilateral lower extremities. Sensation is intact to light touch throughout the lower extremities. Regular rate and rhythm Breathing is nonlabored Assessment and Plan Assessment and plan (1) Lumbar stenosis with neurogenic claudication: Code(s): M48.062 - Spinal stenosis, lumbar region with neurogenic claudication Status: Acute (2) Foraminal stenosis of lumbar region: Code(s): M48.061 - Spinal stenosis, lumbar region without neurogenic claudication Status: Acute Plan Johnie is a 72-year-old gentleman with back and leg pain related to lateral recess and foraminal stenosis at L3-4 L4-5 her presents for left L3-
--- NOTE | 2022-11-26 08:24 | WPDHPUPDATE1 ---
History and Physical Update Update Date/Time: 11/26/22 08:24 History and Physical has been reviewed, including an updated exam of the patient. There are NO changes in the patient's condition. Risks, benefits, and alternatives have been discussed and questions answered. Patient agrees to proceed with procedure.
[2022-11-26] MEDS: ceFAZolin 2 GM/D5W 50 ML 2 GM/50 ML BAG IVPB (08:27)
[2022-11-26] MEDS: LIDO 1%/EPINEPHRINE 1:100,000 50 ML VIAL 10 ML INFILTRATE (09:01)
--- NOTE | 2022-11-26 10:13 | W.PM.PROC2 ---
Procedure Note - Detailed Date of Procedure 11/26/22 Pre-op Diagnosis left L4-5 foraminal stenosis, L3-4 stenosis Post-op Diagnosis Same Procedure Performed Left L3-4 hemilaminectomy, left L4-5 far lateral foraminotomy Surgeon Americo Robertson MD Anesthesia General Description of Procedure Patient was brought to the operating room in the supine position, was sedated, intubated placed under general anesthesia in routine fashion. He was then turned into the prone position on a Addi frame. The of operation on his back was examined, marked for incision, prepped and draped in routine sterile fashion. Incision was marked we will 335 spinous processes in the midline. This area was injected with 0.5% lidocaine with [id number] epinephrine. Intravenous antibiotics given prior to incision. Incision was made with a 10 blade scalpel down to the lumbodorsal fascia. A subperiosteal dissection of the muscle soft tissue with the spinous process and lamina on the left L3-5 was performed with a subperiosteal elevator and Bovie cautery. A verifying x-rays obtained to verify the level of operation. At the L3-4 level a Midas Gunner drill was used to perform a hemilaminectomy and medial facetectomy. On the left at L4-5 a Midas Gunner drill was used to perform a lateral resection of the pars and facet to the soft contents of the foramen were encountered. Under microscopy the yellow ligament was lifted both places and removed piecemeal using Kerrison punches. In the lateral recess a curved curette was used to define a plane with the dura and removed bone and ligament flush with the pedicle with Kerrison punches. This was done until a dental instrument could be placed in the lateral epidural space confirm lack of decompression. At L4-5 nerve root was identified and reflected superiorly. Attempts were made to scrape material out from under the nerve but this was difficult given that the material was mostly calcified. The dorsal decompression was performed along the nerve proximally and distally until a dental instrument could be placed above and below the nerve to confirm lack of compression. The wound was then copiously irrigated with bacitracin irrigation all bleeding stopped with bipolar Bovie cautery and Gelfoam thrombin powder. Wound was then closed in layered fashion with 2-0 Vicryl interrupted sutures in the arm lumbodorsal fascia and Frandy's layer. 3-0 Vicryl buried interrupted sutures were placed in the dermis and the skin was closed with a running 4-0 Monocryl subcuticular stitch and dressed with Dermabond. The patient was allowed to wake up in the operating room was taken to the recovery room in stable condition. There were no immediate complications of this operation. All counts reported correct in case. Blood loss was 50 cc. The patient was neurologically his baseline postoperatively. Some CPT codes: 13015, 04900
[2022-11-26] MEDS: fentaNYL CITRATE INJ (*CRX) 100 MCG/2 ML VIAL 25 MCG IV PUSH ×8 (10:31→12:10)
[2022-11-26] MEDS: oxyCODONE HCL (*CRX) 5 MG TAB IR PO (12:42)
[2022-11-26] MEDS: hydrALAZINE HCL 20 MG/ML VIAL 10 MG IV PUSH (13:00)
== END 2022-11-26 15:15 | disposition home or self-care (01) ==
PROVIDERS: PCP Hospitalist; Visit Provider Neurological Surgery
PROC: (CPT 63005; principal; 2022-11-26 08:00)
DX: M48.062 Spinal stenosis, lumbar region with neurogenic claudication (principal); I25.10 Atherosclerotic heart disease of native coronary artery without angina pectoris; G89.4 Chronic pain syndrome; E78.5 Hyperlipidemia, unspecified; I10 Essential (primary) hypertension; Z95.0 Presence of cardiac pacemaker; Z87.891 Personal history of nicotine dependence; Z79.82 Long term (current) use of aspirin; Z95.1 Presence of aortocoronary bypass graft; Z86.79 Personal history of other diseases of the circulatory system; E66.9 Obesity, unspecified; Z68.29 Body mass index [BMI] 29.0-29.9, adult; Z95.5 Presence of coronary angioplasty implant and graft
CPT/HCPCS: 63030; 63056; 99199; A9270; J0360; J0690; J1100; J2250; J2405; J2704; J3010; J7120

== ENCOUNTER 2023-02-01 09:31 | Outpatient (CLI) | payer MEDICARE, OTHER, SELFPAY ==
--- NOTE | 2023-02-01 11:00 | NEURO_ITS ---
Impression: # Complains of leg numbness. History of spinal surgery. # No responses from right peroneal nerve with absent F-waves. # Underlying neuropathy bilaterally. # Needle/EMG exam revealed scarcity of motor unit potentials but no fibs. # Clinical correlation recommended. Nerve Conduction Studies Anti Sensory Summary Table Stim Site NR Peak (ms) P-T Amp (?V) Site1 Site2 Delta-P (ms) Dist (cm) Jatin (m/s) Left Saphenous Anti Sensory (Ant Med Mall) NO RESPONSE 14cm NR 14cm Ant Med Mall 0.0 Right Saphenous Anti Sensory (Ant Med Mall) NO RESPONSE 14cm NR 14cm Ant Med Mall 0.0 Left Sup Fibular Anti Sensory (Ant Lat Mall) 14 cm 4.0 12.1 14 cm Ant Lat Mall 4.0 16.0 40 Right Sup Fibular Anti Sensory (Ant Lat Mall) NO RESPONSE 14 cm NR 14 cm Ant Lat Mall 16.0 Left Sural Anti Sensory (Lat Mall) Calf 3.7 13.0 Calf Lat Mall 3.7 16.0 43 Right Sural Anti Sensory (Lat Mall) Calf 4.4 14.5 Calf Lat Mall 4.4 16.0 36 Motor Summary Table Stim Site NR Onset (ms) O-P Amp (mV) Site1 Site2 Delta-0 (ms) Dist (cm) Jatin (m/s) Left Peroneal Motor (Vastus Med) Ankle 5.5 2.0 Popit Ankle 11.6 41.0 35 Popit 17.1 1.0 Right Peroneal Motor (Vastus Med) NO RESPONSE Ankle NR Popit Ankle 0.0 Popit NR Left Tibial Motor (Abd Starkey Brev) Ankle 5.5 3.0 Knee Ankle 10.8 43.0 40 Knee 16.3 2.8 Right Tibial Motor (Abd Starkey Brev) Ankle 5.1 1.4 Knee Ankle 12.0 43.0 36 Knee 17.1 0.6 F Wave Studies NR F-Lat (ms) L-R F-Lat (ms) Left Peroneal (Mrkrs) (EDB) 56.39 Right Peroneal (Mrkrs) (EDB) NO RESPONSE NR Left Tibial (Mrkrs) (Abd Hallucis) 56.50 Right Tibial (Mrkrs) (Abd Hallucis) DISPERSED RESPONSE NR EMG Side Muscle Nerve Root Ins Act Fibs Amp Dur Recrt Comment Right AntTibialis Dp Br Fibular L4-5 Nml Nml Nml Nml Reduced Right Gastroc Tibial S1-2 Nml Nml Nml Nml Reduced Right Fibularis Long Sup Br Fibular L5-S1 Nml Nml Nml Nml Nml Right Flex Dig Long Tibial L5-S2 Nml Nml Nml Nml Nml Right Ext Dig Brev Dp Br Fibular L5, S1 Nml Nml Nml Nml Reduced Left AntTibialis Dp Br Fibular L4-5 Nml Nml Nml Nml Nml Left Gastroc Tibial S1-2 Nml Nml Nml Nml Nml Left Fibularis Long Sup Br Fibular L5-S1 Nml Nml Nml Nml Nml Left Flex Dig Long Tibial L5-S2 Nml Nml Nml Nml Nml Left Ext Dig Brev Dp Br Fibular L5, S1 Nml Nml Nml Nml Nml MTDD
== END 2023-02-01 09:32 | disposition home or self-care (01) ==
LOC: ANHNEURO 09:31
PROVIDERS: PCP Hospitalist; Visit Provider Neurological Surgery
DX: M48.061 Spinal stenosis, lumbar region without neurogenic claudication (principal)
CPT/HCPCS: 95886; 95911

== ENCOUNTER 2023-05-28 05:29 | Outpatient (CLI) | payer MEDICARE, OTHER, SELFPAY ==
[2023-05-20 10:48] VITALS: BMI 29.5
--- NOTE | 2023-05-20 10:49 | PC.NURSE ---
Pre Radiology instructions Report to the outpatient torrey weldon on date __05/28/23___ at time __0630____ for procedure Time: __829__ YOU MAY BE MONITORED AT HOSPITAL FOR UP TO 4 HOURS AFTER YOUR PROCEDURE. A visitor will be allowed to accompany the patient into the hospital. You and your visitor will be asked to self-screen and do not enter if you have any COVID symptoms. A mask is OPTIONAL within the hospital. Patients are to have no food or drink 8 hours prior to procedure time (0030) Driving will be restricted after the procedure, you must have a person to drive you home. Labs will be drawn in preop area and once reviewed, you will be taken to radiology area for procedure. When the procedure is completed, you will be taken to outpatient where you will be monitored for several hours. You may have one visitor in this area. Other than holding anti-coagulants, patient may take other medication(s) as scheduled. Prior to your appointment date patients are instructed to hold anti-coagulants after discussing with ordering provider to stop. If unable to discontinue anti-coagulants please notify radiologist. ? No aspirin or warfarin (Coumadin) for 7 days prior to the procedure. ? No clopidogrel (Plavix), ticagrelor (Brilinta), prasugrel (Effient) or dabigatran (Pradaxa) for 5 days prior to the procedure. ? No rivaroxaban (Xarelto), apixaban (Eliquis), dipyridamole (Aggrenox or Persantine) or cilostazol (Pletal) for 2 days prior to the procedure. Medications to discontinue per physician: __ASPIRIN, Date to take last dose: 05/21/23, - XARELTO, Date to take last dose: 10/25/23_ Please leave all valuables, including medications, at home the day of procedure. The hospital will not accept responsibility for valuables. Wear comfortable, loose fitting clothing.? Follow any additional instructions given to you from ordering provider. Telephone instructions given to ____PT and asked if any additional questions and then verbalized understanding. Patient advised to call scheduling provider office or registration scheduling [phone] if any additional questions.
[2023-05-28] VITALS (11 sets, daily range): BP systolic 120–173; BP diastolic 56–91; PULSE 59–93; RESP 16–18; TEMP 36.3; O2SAT 97–99
--- NOTE | ~2023-05-28 | CT_ITS ---
EXAMINATION: 1. XR myelogram spine lumbosacral 2. CT lumbar spine w con DATE: 05/28/2023 11:04 INDICATION: Spondylolisthesis, lumbosacral region. TECHNIQUE: The procedure including the risks, benefits, and alternatives was discussed with the patie nt. Risks discussed included spinal headache, cerebrospinal fluid leak, bleeding, and infection. The patient understood the risks and agreed to proceed. A timeout was performed to verify the patient' s name, date of , and procedure to be performed. The skin overlying the L5 level was prepped an d draped in usual sterile fashion. Subcutaneous 1% lidocaine was used for local anesthesia. A 22 ga uge spinal needle was advanced under fluoroscopic guidance. 17 mL Omnipaque 180 was injected. The nee dle was removed and the entry site was cleaned and dressed. There were no immediate complications. F luoroscopy exposure time was 0.3 minutes. The total number of images was 245. Computed tomography (CT ) of the lumbar spine was performed without intravenous contrast. Automated exposure control and iter ative reconstruction technique were employed. The dose-length product was 638.24 mGy-cm. COMPARISON: CT lumbar spine 05/26/22 FINDINGS: XR MYELOGRAM SPINE LUMBAR: Real-time fluoroscopy demonstrates the needle at the L5 level. There is in dentation of the thecal sac at multiple levels that will be further described on the post myelogram C T. POSTMYELOGRAM LUMBAR SPINE CT: Bone alignment is normal. There are Schmorl's nodes at multiple levels . There is mild chronic anterior wedging of T9-T12 vertebral bodies. There are changes of anterior an d posterior fusion procedures at L5-S1 with interbody devices, healed interbody bone graft, and pedic le screws. There is a left L5 pars defect. There are bridging endplate osteophytes at multiple levels in the thoracic spine, consistent with diffuse idiopathic skeletal hyperostosis (DISH). There is sev erely decreased disc height at L1-L2 and mildly decreased disc height at L2-L3 and L3-L4. The spinal cord morphology is normal. The conus medullaris is at L1. The following disc levels are specifically discussed: L1-L2: The disc is bulging. There is moderate bilateral facet joint osteoarthritis. There is mild vanda ateral neural foraminal stenosis. There is mild central canal stenosis. L2-L3: The disc is bulging. There is moderate bilateral facet joint osteoarthritis. There is mild vanda ateral neural foraminal stenosis. There is no central canal stenosis. L3-L4: The disc is bulging. There is moderate bilateral facet joint osteoarthritis. There is mild vanda ateral neural foraminal stenosis. There is mild central canal stenosis. L4-L5: The disc is bulging. There is severe bilateral facet joint osteoarthritis. There is moderate b ilateral neural foraminal stenosis. There is mild central canal stenosis. L5-S1: There is mild bilateral facet joint hypertrophy. There is mild bilateral neural foraminal sten osis. There is no central canal stenosis. IMPRESSION: 1. Left L3 pars defect, new from 05/26/2022. 2. Anterior and posterior fusion procedures at L5-S1. 3. Severe lumbar spondylosis, stable from 05/26/2022. 4. Thoracic DISH. Reviewed, dictated and finalized at location A. IMPRESSION: 1. Left L3 pars defect, new from 05/26/2022. 2. Anterior and posterior fusion procedures at L5-S1. 3. Severe lumbar spondylosis, stable from 05/26/2022. 4. Thoracic DISH.
[2023-05-28 07:45] LABS: Mean Platelet Volume 9.7 fl (7.4-10.4); Platelet Count Result 183 k/mm3 (150-375)
== END 2023-05-28 11:30 | disposition home or self-care (01) ==
PROVIDERS: PCP Hospitalist; Referring Provider Neurological Surgery; Visit Provider Radiology Diagnostic Radiology
DX: M43.17 Spondylolisthesis, lumbosacral region (principal); M48.061 Spinal stenosis, lumbar region without neurogenic claudication; M51.86 Other intervertebral disc disorders, lumbar region; Z98.1 Arthrodesis status; M48.14 Ankylosing hyperostosis [Forestier], thoracic region
CPT/HCPCS: 36415; 62304; 72132; 85049; 85610; Q9965